=== PATIENT | female | born 1955 | race Caucasian/White ===

== ENCOUNTER 2019-12-12 13:41 | Emergency (ER) | payer BC, OTHER ==
[~2019-12-12] VITALS: Ht 154.9 cm; Wt 87.6 kg
--- NOTE | 2019-12-12 13:58 | ED General ---
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 no definite dx known no travel or exposure to travelers from high risk areas initially had some low-grade fevers and a little vomiting and diarrhea those symptoms have resolved she feels congested weak and short of breath and feels her breathing treatments don't help cough with occ cream/green sputum she has been seen 3 times got got steroid shot is on prednisone she uses metered-dose inhalers and nebulizer treatments at home she took antibi otics briefly but is no longer on antibiotics Allergies and Home Medications Allergies Coded Allergies: codeine (Unverified Adverse Reaction, Unknown, 12/12/19) meperidine (Unverified Adverse Reaction, Unknown, 12/12/19) Home Medications Ipratropium/Albuterol Sulfate 3 Ml Ampul.neb, 3 ML IH Q4H PRN for SHORTNESS OF BREATH Prescribed by: MANUEL UP on 12/12/19 1532 Patient Home Medication List Home Medication List Reviewed: Yes Review of Systems Review of Systems Constitutional: dizziness; No fever EENTM: nose congestion; No throat pain Respiratory: cough, short of breath Cardiovascular: No chest pain, No palpitations, No syncope Gastrointestinal: No abdominal pain, No diarrhea, No vomiting Genitourinary: no symptoms reported Past Zmxkdak-Xovlhy-Gubdue Hx Patient Social History Recent Foreign Travel: No Contact w/Someone Who Travel: No Physical Exam Vital Signs Vital Signs - First Documented 12/12/19 13:50 Temp 36.7 Pulse 110 Resp 20 B/P (MAP) 189/83 (118) Pulse Ox 95 O2 Delivery Room Air Capillary Refill : Height, Weight, BMI Height: '" Weight: lbs. oz. kg; BMI Method: General Appearance: Other (mildly ill appearing no distress) Eyes: Bilateral Eye PERRL, Bilateral Eye EOMI HEENT: TMs Normal, Pharynx Normal Neck: Supple Respiratory: Normal Breath Sounds Cardiovascular: Regular Rate, Rhythm, No Murmur Gastrointestinal: Normal Bowel Sounds, Non Tender, Soft Extremity: No No Pedal Edema, No Calf Tenderness Focused Exam Lactate Level 12/12/19 14:10: Lactic Acid Level 2.30*H Lactic Acid Level Laboratory Tests Test 12/12/19 14:10 Lactic Acid Level 2.30 MMOL/L (0.50-2.00) *H Progress/Results/Core Measures Suspected Sepsis SIRS Temperature: Pulse: Respiratory Rate: Laboratory Tests 12/12/19 14:10: White Blood Count 11.6H Blood Pressure / Mean: 12/12/19 14:10: Lactic Acid Level 2.30*H Laboratory Tests 12/12/19 14:10: Creatinine 0.71, Platelet Count 406H, Total Bilirubin 0.2 Results/Orders Lab Results Laboratory Tests Test 12/12/19 14:10 Range/Units White Blood Count 11.6 H 4.3-11.0 10^3/uL Red Blood Count 4.07 L 4.35-5.85 10^6/uL Hemoglobin 12.2 11.5-16.0 G/DL Hematocrit 38 35-52 % Mean Corpuscular Volume 93 80-99 FL Mean Corpuscular Hemoglobin 30 25-34 PG Mean Corpuscular Hemoglobin Concent 32 32-36 G/DL Red Cell Distribution Width 12.8 10.0-14.5 % Platelet Count 406 H 130-400 10^3/uL Mean Platelet Volume 8.2 7.4-10.4 FL Neutrophils (%) (Auto) 92 H 42-75 % Lymphocytes (%) (Auto) 6 L 12-44 % Monocytes (%) (Auto) 2 0-12 % Eosinophils (%) (Auto) 0 0-10 % Basophils (%) (Auto) 0 0-10 % Neutrophils # (Auto) 10.6 H 1.8-7.8 X 10^3 Lymphocytes # (Auto) 0.7 L 1.0-4.0 X 10^3 Monocytes # (Auto) 0.2 0.0-1.0 X 10^3 Eosinophils # (Auto) 0.0 0.0-0.3 10^3/uL Basophils # (Auto) 0.0 0.0-0.1 10^3/uL Neutrophils % (Manual) 91 % Lymphocytes % (Manual) 4 % Monocytes % (Manual) 2 % Eosinophils % (Manual) 0 % Basophils % (Manual) 0 % Band Neutrophils 3 % Blood Morphology Comment NORMAL D-Dimer 0.23 0.00-0.49 UG/ML Sodium Level 141 135-145 MMOL/L Potassium Level 3.7 3.6-5.0 MMOL/L Chloride Level 100 98-107 MMOL/L Carbon Dioxide Level 26 21-32 MMOL/L Anion Gap 15 H 5-14 MMOL/L Blood Urea Nitrogen 17 7-18 MG/DL Creatinine 0.71 0.60-1.30 MG/DL Estimat Glomerular Filtration Rate > 60 BUN/Creatinine Ratio 24 Glucose Level 195 H 70-105 MG/DL Lactic Acid Level 2.30 *H 0.50-2.00 MMOL/L Calcium Level 9.1 8.5-10.1 MG/DL Corrected Calcium 9.0 8.5-10.1 MG/DL Total Bilirubin 0.2 0.1-1.0 MG/DL Aspartate Amino Transf (AST/SGOT) 17 5-34 U/L Alanine Aminotransferase (ALT/SGPT) 19 0-55 U/L Alkaline Phosphatase 71 40-136 U/L Troponin I < 0.30 <0.30 NG/ML Total Protein 6.8 6.4-8.2 GM/DL Albumin 4.1 3.2-4.5 GM/DL Micro Results Microbiology 12/12/19 Influenza Types A,B Antigen (NIKOLAY) - Final, Complete My Orders Orders - MANUEL UP MD Iv Heplock-Insert (Order) (12/12/19 14:05) Cbc With Automated Diff (12/12/19 14:05) Comprehensive Metabolic Panel (12/12/19 14:05) Lactic Acid Analyzer (12/12/19 14:05) Troponin I Fs (12/12/19 14:05) Influenza A And B Antigens (12/12/19 14:05) Chest Pa/Lat (2 View) (12/12/19 14:05) Orthostatic Vital Signs (Adult (12/12/19 14:05) Manual Differential (12/12/19 14:10) Clonidine Tablet (Catapres Tablet) (12/12/19 14:45) Fibrin Degradation Products (12/12/19 14:40) Albuterol/Ipra Inhalation Soln (Duoneb I (12/12/19 14:45) Svn Small Volume Nebulizer (12/12/19 14:40) Ns Iv 1000 Ml (Sodium Chloride 0.9%) (12/12/19 14:45) Ekg Tracing (12/12/19 15:24) Medications Given in ED Current Medications Medications Dose Ordered Sig/Heather Route Start Time Stop Time Status Last Admin Dose Admin Albuterol/ Ipratropium 3 ml ONCE ONCE INH 12/12/19 14:45 12/12/19 14:46 DC 12/12/19 14:50 3 ML Clonidine HCl 0.2 mg ONCE ONCE PO 12/12/19 14:45 12/12/19 14:46 DC 12/12/19 14:49 0.2 MG Vital Signs/I&O 12/12/19 12/12/19 13:50 14:00 Temp 36.7 Pulse 110 91 94 95 Resp 20 B/P (MAP) 189/83 (118) 208/81 (123) 190/72 (111) 190/83 (118) Pulse Ox 95 O2 Delivery Room Air Capillary Refill : Progress Note : Progress Note EKG shows sinus rhythm at 91 with no acute changes CXR - no definite infiltrate no infiltrate no CHF Hb 12.2 WBC 11,600 lactic 2.3 CMP - neg trop - neg influenza - A&B neg d-dimer - neg orthostats were negative but patient has consistently high blood pressures one reading was over 200 systolic she takes lisinopril 20 qHS will augment with clonidine 0.2 po here now beck pt felt that worked well will prescribe solution for use with nebulizer BP better 175/ Departure Impression Primary Impression: Bronchitis Disposition: 01 HOME, SELF-CARE Condition: Improved Departure-Patient Inst. Decision time for Depature: 15:31 Referrals: [facility] (PCP) Primary Care Physician MARIA DE JESUS MAGUIRE APRN (Family) Primary Care Physician Patient Instructions: Acute Bronchitis, Adult (DC) Add. Discharge Instructions: Recommend finishing out antibiotic prescription and continuing prednisone as prescribed Scripts Ipratropium/Albuterol Sulfate (Iprat-Albut 0.5-3(2.5) mg/3 ml) 3 Ml Ampul.neb 3 ML IH Q4H PRN for SHORTNESS OF BREATH, #90 EACH Prov: MANUEL UP MD 12/12/19 MANUEL UP MD Dec 12, 2019 13:58
[2019-12-12 14:00] VITALS: BP_SYST 190; BP_SYST 208; BP_DIAS 72; BP_DIAS 81; BP_DIAS 83
[2019-12-12] MEDS ORDERED: ESTR2TAB (14:04)
[2019-12-12] MEDS ORDERED: SIMV20TA26 (14:04)
[2019-12-12] MEDS ORDERED: FLUT1DIS26 (14:04)
[2019-12-12] MEDS ORDERED: ALBU2.5V4 (14:04)
[2019-12-12] MEDS ORDERED: MONT10TA26 (14:04)
[2019-12-12] MEDS ORDERED: PRD20T (14:04)
[2019-12-12] MEDS ORDERED: SERT100T8 (14:04)
[2019-12-12] MEDS ORDERED: LISI-552 (14:04)
[2019-12-12] MEDS ORDERED: PRD10T (14:04)
[2019-12-12 14:30] LABS: WHITE BLOOD COUNT 11.6 10^3/uL (4.3-11.0)
[2019-12-12 14:31] LABS: BASOPHILS % (AUTO) 0 % (0-10); EOSINOPHILS % (AUTO) 0 % (0-10); HEMATOCRIT 38 % (35-52); HEMOGLOBIN 12.2 G/DL (11.5-16.0); LYMPHOCYTES # (AUTO) 0.7 X 10^3 (1.0-4.0); LYMPHOCYTES % (AUTO) 6 % (12-44); MEAN CORPUSCULAR HEMOGLOBIN 30 PG (25-34); MEAN CORPUSCULAR HGB CONC 32 G/DL (32-36); MEAN CORPUSCULAR VOLUME 93 FL (80-99); MEAN PLATELET VOLUME 8.2 FL (7.4-10.4); MONOCYTES # (AUTO) 0.2 X 10^3 (0.0-1.0); MONOCYTES % (AUTO) 2 % (0-12); NEUTROPHILS # (AUTO) 10.6 X 10^3 (1.8-7.8); NEUTROPHILS % (AUTO) 92 % (42-75); PLATELET COUNT 406 10^3/uL (130-400); RED CELL DISTRIBUTION WIDTH 12.8 % (10.0-14.5)
[2019-12-12 14:36] LABS: BAND NEUTROPHILS 3 %; BASOPHILS % (MANUAL) 0 %; EOSINOPHILS % (MANUAL) 0 %; LYMPHOCYTES % (MANUAL) 4 %; MONOCYTES % (MANUAL) 2 %; NEUTROPHILS % (MANUAL) 91 %
[2019-12-12 14:37] LABS: RBC MORPH NORMAL
--- NOTE | 2019-12-12 14:39 | Diagnostic Imaging Report ---
INDICATION: Cough, shortness of breath. COMPARISON: None available. TECHNIQUE: Frontal and lateral radiograph of the chest dated December 12, 2019. FINDINGS: The cardiac silhouette and pulmonary vasculature are within normal limits. The lungs are clear. No pleural effusion. No pneumothorax. Surgical clips within the right upper quadrant of the abdomen. No acute osseous abnormality. IMPRESSION: No acute cardiopulmonary abnormality. Dictated by: Dictated on workstation # [id number]
[2019-12-12] MEDS ORDERED: NS IV 1000 ML 1,000 ML IV SCH (14:45)
[2019-12-12] MEDS ORDERED: cloNIDine 0.2 MG (CATAPRES) TAB PO ONE (14:45)
[2019-12-12] MEDS ORDERED: RT-ALBUTEROL/IPRATROPIUM 3 ML (DUONEB) VIAL INH ONE (14:45)
[2019-12-12 14:51] LABS: SODIUM 141 MMOL/L (135-145)
[2019-12-12 14:52] LABS: BILIRUBIN,TOTAL 0.2 MG/DL (0.1-1.0); BUN/CREATININE RATIO 24; CALCIUM 9.1 MG/DL (8.5-10.1); CARBON DIOXIDE 26 MMOL/L (21-32); CHLORIDE 100 MMOL/L (98-107); CREATININE SERUM 0.71 MG/DL (0.60-1.30); GFR ESTIMATED > 60; GLUCOSE 195 MG/DL (70-105); POTASSIUM 3.7 MMOL/L (3.6-5.0)
[2019-12-12 14:53] LABS: ALANINE AMINOTRANSFERASE 19 U/L (0-55); ALBUMIN 4.1 GM/DL (3.2-4.5); ALKALINE PHOSPHATASE 71 U/L (40-136); TOTAL PROTEIN 6.8 GM/DL (6.4-8.2)
[2019-12-12] MEDS ORDERED: IPRA3AMP31 IH (15:32)
[2019-12-12 15:54] VITALS: BP 161/71
--- NOTE | 2019-12-12 15:54 | NUR ---
Pt discharged to home after review of home instructions. Pt has been advised/encouraged to complete previos prescribed medications: antibiotics and steroid. Pt has had 2 steroid scripts in the course of her illness and she had stopped antibiotics as not getting better but tapered her steroid pills to half the pills and tapered the course quicker. Pt took 2 days of 40 mg then skipped to 30 mg and has had 3 days of that. Last course broke all pills in half. Pt is also reporting on HTN med and cholestrol med and swears Lisinopril is to be a night time med. Pt has not taken any Lisinopril since last night and BP responding to Clonidine. Pt educated to get a f/u appt and discuss the medication regimen.
--- OUTSIDE RECORDS SUMMARY | 2019-12-14 08:57 | XMS REPORT ---
Author Author Mirta MALDONADO Organization [employer] Address Unknown Phone Unavailable Care Team Providers Care Assistant Professor Of Marine Biology Name Role Phone STEFANI MALDONADO CP Unavailable Allergies No Known Allergies Problems Problem Type Condition Code Onset Dates Condition Statu s Assessment Encounter for immunization Z23 A ctive Problem Need for prophylactic vaccination and inoculation, Inf luenza V04.81 Active Medications No Known Medications Procedures Procedure Coding System Code Date SINGLE IMMUNIZATION ADMIN CPT-4 59033 Aug FLUARIX QUAD (3 & UP)-GSK-2014 CPT-4 58475 N 2014 Results No Known Results Immunizations Vaccine Administration Date FLUARIX QUAD (3 & UP)-GSK-2014Aug 04, 2015 Summary Purpose [employer] Submission
--- OUTSIDE RECORDS SUMMARY | 2019-12-14 08:57 | XMS REPORT ---
Author Author Mirta KRISHNA Organization [facility] Address [address] [place] [address] Care Team Providers Care Cardiac Technician Name Role Phone TOMI WENDY Unavailable PROBLEMS Type Condition ICD9-CM Code NZV36-CD Code Onset Dates Condition S tatus SNOMED Code Problem Prediabetes 790.29 Mar, 0 46632 8002 Problem Skin lesion 709.9 January, 0 05449 001 Problem HTN (hypertension) 401.9 Oct, 0 90708885 Problem Well woman exam with routine gynecological exam V72.31 January, 0 408063665336366 Problem Encounter for removal of sutures V58.32 January, 0 18578876 Problem Anxiety state 300.00 Mar, 0 198 167102 Problem Closed fracture of patella 822.0 Mar, 0 62544657 Problem Well woman exam with routine gynecological exam Z01.419 January, 0 538100156064999 Problem Need for prophylactic vaccination and inoculation, Influen za V04.81 Active 181632194 Problem Closed fracture of patella S82.009A Mar, 0 70022429 Problem Patellofemoral arthritis of right knee 716.96 2 3 Nov, 2017 0 825782839 Problem Unspecified asthma(493.90) J45.909 0 86968627 Problem Skin lesion L98.9 January, 0 59395 001 Problem Allergic rhinitis due to other allergen 477.8 0 67448932 Problem Encounter for removal of sutures Z48.02 January, 0 63622378 Problem Essential hypertension I10 Active 58763209 Problem Cough 786.2 Jul, 0 0856788 2 Problem HTN (hypertension) I10 Oct, 0 49933349 Problem Cough R05 Jul, 0 4162607 2 Problem Patellofemoral arthritis of right knee M17.11 2 3 Nov, 2017 0 141461767 Problem Allergic rhinitis due to other allergen J30.89 0 32600679 Problem Prediabetes R73.03 Mar, 0 41543 8002 Problem Anxiety state F41.1 Mar, 0 198 734751 ALLERGIES No Information ENCOUNTERS Encounter Location Date [facility] [address] [address] Nov, Anxiety state F41.1 and Acute sinusitis, recurrence not specified, unspecified location J01.90 [facility] [address] [address] Nov, [address] [address] Nov, Microcalcification of right breast on ma mmogram R92.[address] [address] Nov, Microcalcification of right breast on ma mmogram R92.[address] [address] Nov, Microcalcification of right breast on ma mmogram R92.[address] [address] Nov, Screening mammogram, encounter for Z12.[address] [address] Nov, Well woman exam with routine gynecologic al exam Z01.[address] [address] Nov, [facility] [address] [facility] [place] [address] Nov, Essential hypertension I10 [address] [address] Nov, [address] [address] Nov, [facility] [address] [facility] [id number] [address] [place] [address] Aug, [facility] [address] [place] [id number] [address] [place] [phone] Jul, [facility] [address] [facility] [id number] [address] [place] [address] Aug, [facility] [address] [facility] [id number] [address] [place] [address] Aug, Encounter for immunization Z 23 [facility] [address] [facility] [id number] [address] [place] [phone] Jul, [facility] [address] [facility] [id number] [address] [place] [address] Jul, IMMUNIZATIONS No Known Immunizations SOCIAL HISTORY Never Assessed REASON FOR VISIT PLAN OF CARE VITAL SIGNS MEDICATIONS No Known Medications RESULTS No Results PROCEDURES No Known procedures INSTRUCTIONS MEDICATIONS ADMINISTERED No Known Medications MEDICAL (GENERAL) HISTORY Type Description Date Medical History hypertension Medical History asthma Medical History hormone Medical History depression Surgical History cholecystectomy Surgical History right knee /patella repair Surgical History hysterectomy, abdominal Hospitalization History surgeries Hospitalization History child x3, 1 miscarriage
--- OUTSIDE RECORDS SUMMARY | 2019-12-14 08:57 | XMS REPORT ---
Author Author Mirta KRISHNA Organization [facility] Address [address] [place] [address] Care Team Providers Care Director Voice Name Role Phone TOMI WENDY Unavailable PROBLEMS Type Condition ICD9-CM Code RNN32-YL Code Onset Dates Condition S tatus SNOMED Code Problem Prediabetes 790.29 Mar, 0 87212 8002 Problem Skin lesion 709.9 January, 0 53406 001 Problem HTN (hypertension) 401.9 Oct, 0 50450904 Problem Well woman exam with routine gynecological exam V72.31 January, 0 541709764039108 Problem Encounter for removal of sutures V58.32 January, 0 24789399 Problem Anxiety state 300.00 Mar, 0 198 787984 Problem Closed fracture of patella 822.0 Mar, 0 63227856 Problem Well woman exam with routine gynecological exam Z01.419 January, 0 061207679350329 Problem Need for prophylactic vaccination and inoculation, Influen za V04.81 Active 095077585 Problem Closed fracture of patella S82.009A Mar, 0 02000958 Problem Patellofemoral arthritis of right knee 716.96 2 3 Nov, 2017 0 308857484 Problem Unspecified asthma(493.90) J45.909 0 37875570 Problem Skin lesion L98.9 January, 0 03639 001 Problem Allergic rhinitis due to other allergen 477.8 0 13029887 Problem Encounter for removal of sutures Z48.02 January, 0 94185119 Problem Essential hypertension I10 Active 77519230 Problem Cough 786.2 Jul, 0 3039808 2 Problem HTN (hypertension) I10 Oct, 0 43167819 Problem Cough R05 Jul, 0 2476183 2 Problem Patellofemoral arthritis of right knee M17.11 2 3 Nov, 2017 0 072377482 Problem Allergic rhinitis due to other allergen J30.89 0 82777779 Problem Prediabetes R73.03 Mar, 0 58183 8002 Problem Anxiety state F41.1 Mar, 0 198 186676 ALLERGIES No Information ENCOUNTERS Encounter Location Date [facility] [address] [address] Dec, [address] [address] Nov, Anxiety state F41.1 and Acute sinusitis, recurrence not specified, unspecified location J01.90 [facility] [address] [address] Nov, [address] [address] Nov, Microcalcification of right breast on ma mmogram R92.[address] [address] Nov, Microcalcification of right breast on ma mmogram R92.[address] [address] Nov, Microcalcification of right breast on ma mmogram R92.[address] [address] Nov, Screening mammogram, encounter for Z12.3 [address] [facility] [address] [address] Nov, Well woman exam with routine gynecologic al exam Z01.[address] [address] Nov, [facility] [address] [facility] [place] [address] Nov, Essential hypertension I10 [address] [address] Nov, [address] [address] Nov, [facility] [address] [facility] [id number] [address] [place] [address] Aug, [facility] [address] [facility] [id number] [address] [place] [phone] Jul, [facility] [address] [facility] [id number] [address] [place] [phone] Aug, [facility] [address] [facility] [id number] [address] [place] [phone] Aug, Encounter for immunization Z 23 [facility] [address] [facility] [id number] [address] [place] [address] Jul, [facility] [address] [facility] [id number] [address] [place] [phone] Jul, IMMUNIZATIONS No Known Immunizations SOCIAL HISTORY Never Assessed REASON FOR VISIT Rt diagnostic Return - Alexia LOPEZ R M PLAN OF CARE VITAL SIGNS MEDICATIONS Unknown Medications RESULTS Name Result Date Reference Range MAMMOGRAM : DIAGNOSTIC, RIGHT UNILATERAL (IN HOUSE) 2018-12-06 PROCEDURES Procedure Date Ordered Result Body Site DX MAMMO INCL CAD UNI December 06, 2018 INSTRUCTIONS MEDICATIONS ADMINISTERED No Known Medications MEDICAL (GENERAL) HISTORY Type Description Date Medical History hypertension Medical History asthma Medical History hormone Medical History depression Surgical History cholecystectomy Surgical History right knee /patella repair Surgical History hysterectomy, abdominal Hospitalization History surgeries Hospitalization History child x3, 1 miscarriage
== END 2019-12-12 15:54 | disposition home or self-care (01) ==
LOC: ER FS 13:44
DX: J40 Bronchitis, not specified as acute or chronic (principal); Z88.5 Allergy status to narcotic agent
CPT/HCPCS: 36415; 71046; 80053; 83605; 84484; 85007; 85027; 85379; 87804; 93005

== ENCOUNTER 2020-02-29 08:40 | Emergency (ER) | payer BC ==
[~2020-02-29] VITALS: Ht 154.9 cm; Wt 85.9 kg
[~2020-02-29 08:40] MED LIST: ALBU2.5V4; ESTR2TAB; FLUT1DIS26; IPRA3AMP31 IH; LISI-552; MONT10TA26; PRD10T; PRD20T; SERT100T8; SIMV20TA26
--- OUTSIDE RECORDS SUMMARY | 2020-02-29 08:46 | XMS REPORT | Continuity of Care Document ---
Author Organization Unknown Address Unknown Phone Unavailable Allergies Active Description Code Type Severity Reaction Onset Reported/Identified Relationship to Patient Clinical Status Yes codeine [id number] Drug Allergy Unknown N/A 12/12/2019 Yes meperidine [id number] Drug Allerg y Unknown N/A 12/12/2019 Medications There is no data. Problems Date Dx Coded Attending Type Code Diagnosis Diagnosed By 07/17/2014 V04.81 FLU SHOT 12/12/2019 MANUEL UP MD Ot J40 BRONCHITIS, NOT SPECIFIED ACUTE OR CH 12/12/2019 MANUEL UP MD Ot R06. 02 SHORTNESS OF BREATH 12/12/2019 MANUEL UP MD Ot Z88. 5 ALLERGY STATUS TO NARCOTIC AGENT STATUS 12/16/2019 MANUEL UP MD Ot J40 BRONCHITIS, NOT SPECIFIED ACUTE OR CH 12/16/2019 MANUEL UP MD Ot R06. 02 SHORTNESS OF BREATH 12/16/2019 MANUEL UP MD Ot Z88. 5 ALLERGY STATUS TO NARCOTIC AGENT STATUS 12/20/2019 MANUEL UP MD Ot J40 BRONCHITIS, NOT SPECIFIED ACUTE OR CH 12/20/2019 MANUEL UP MD Ot R06. 02 SHORTNESS OF BREATH 12/20/2019 MANUEL UP MD Ot Z88. 5 ALLERGY STATUS TO NARCOTIC AGENT STATUS Procedures There is no data. Results Test Result Range SUREPATH PAP RFX HPV mRNA E6/E7 - 09:44 CLINICAL INFORMATION: NRG LMP: NRG PREV. PAP: NRG PREV. BX: NRG SOURCE: Cervix NRG STATEMENT OF ADEQUACY: NRG INTERPRETATION/RESULT: NRG VIDEO INTERN: VICTORIANO COMMENT NRG A1C - 06/25/19 10:11 HEMOGLOBIN A1c 5.7 % of total Hgb <5.7 Influenza virus A and B antigen detectio n - 12/12/19 14:00 FLU RESULT NEGATIVE FOR INFLUENZA A AND B ANTIGENS BY IA NRG Complete blood count (CBC) with automate d white blood cell (WBC) differential - 12/12/19 14:10 Blood leukocytes automated count (number/volume) 11.6 10*3/uL 4.3-11.0 Blood erythrocytes automated count (number/volume) 4.07 10*6/uL 4.35-5.85 Venous blood hemoglobin measurement (mass/volume) 12.2 g/dL 11.5-16.0 Blood hematocrit (volume fraction) 38 % 35-52 Automated erythrocyte mean corpuscular volume 93 [ foz_us] 80-99 Automated erythrocyte mean corpuscular h emoglobin (mass per erythrocyte) 30 pg 25-34 Automated erythrocyte mean corpuscular h emoglobin concentration measurement (mass/volume) 32 g/dL 32-36 Automated erythrocyte distribution width ratio 12. 8 % 10.0- 14.5 Automated blood platelet count (count/volume) 406 10*3/uL 130-400 Automated blood platelet mean volume measurement 8.2 [foz_us] 7.4-10.4 Automated blood neutrophils/100 leukocytes 92 % 42-75 Automated blood lymphocytes/100 leukocytes 6 % 12-44 Blood monocytes/100 leukocytes 2 % 0-12 Automated blood eosinophils/100 leukocytes 0 % 0-10 Automated blood basophils/100 leukocytes 0 % 0-10 Blood neutrophils automated count (number/volume) 10.6 10*3 1.8-7.8 Blood lymphocytes automated count (number/volume) 0.7 10*3 1.0-4.0 Blood monocytes automated count (number/volume) 0. 2 10*3 0.0-1.0 Automated eosinophil count 0.0 10*3/uL 0 .0-0.3 Automated blood basophil count (count/volume) 0.0 10*3/uL 0.0-0.1 Manual absolute plasma cell count - 11/29 12/18 14:10 Blood monocytes/100 leukocytes 2 % NRG Manual blood segmented neutrophils/100 leukocytes 91 % NRG Blood band neutrophils/100 leukocytes 3 % NRG Manual blood lymphocytes/100 leukocytes 4 % NRG Manual eosinophils/100 leukocytes in nose 0 % NRG Manual blood basophils/100 leukocytes 0 % NRG Blood erythrocyte morphology finding identification NORMAL NRG Blood lactic acid measurement (moles/vol ume) - 12/12/19 14:10 Blood lactic acid measurement (moles/volume) 2.30 mmol/L 0.50-2.00 Comprehensive metabolic panel - 12/12/19 14:10 Serum or plasma sodium measurement (moles/volume) 141 mmol/L 135-145 Serum or plasma potassium measurement (moles/volume) 3.7 mmol/L 3.6-5.0 Serum or plasma chloride measurement (moles/volume) 100 mmol/L 98-107 Carbon dioxide 26 mmol/L 21-32 Serum or plasma anion gap determination (moles/volume) 15 mmol/L 5-14 Serum or plasma urea nitrogen measurement (mass/volume ) 17 mg/dL 7-18 Serum or plasma creatinine measurement (mass/volume) 0.71 mg/dL 0.60-1.30 Serum or plasma urea nitrogen/creatinine mass ratio 24 NRG Serum or plasma creatinine measurement w ith calculation of estimated glomerular filtration rate > NRG Serum or plasma glucose measurement (mass/volume) 195 mg/dL 70-105 Serum or plasma calcium measurement (mass/volume) 9.1 mg/dL 8.5-10.1 Serum or plasma total bilirubin measurement (mass/volu me) 0.2 mg/dL 0.1-1.0 Serum or plasma alkaline phosphatase chandler surement (enzymatic activity/volume) 71 U/L 40-136 Serum or plasma aspartate aminotransfera se measurement (enzymatic activity/volume) 17 U/L 5-34 Serum or plasma alanine aminotransferase measurement (enzymatic activity/volume) 19 U/L 0-55 Serum or plasma protein measurement (mass/volume) 6.8 g/dL 6.4-8.2 Serum or plasma albumin measurement (mass/volume) 4.1 g/dL 3.2-4.5 CALCIUM CORRECTED 9.0 mg/dL 8.5-10.1 TROPONIN I FS - 12/12/19 14:10 TROPONIN I FS < 0.30 <0.30 Fibrin D-dimer FEU measurement in platel et poor plasma (mass/volume) - 12/12/19 14:10 Fibrin D-dimer FEU measurement in platelet poor plasma (mass/volume) 0.23 ug/mL 0.00-0.49 CBC - 12/29/19 11:29 WHITE BLOOD CELL COUNT 7.1 Thousand/uL 3 .8-10.8 RED BLOOD CELL COUNT 4.20 Million/uL 3.8 0-5.10 HEMOGLOBIN 12.5 g/dL 11.7-15.5 HEMATOCRIT 37.2 % 35.0-45.0 MCV 88.6 fL 80.0-100.0 MCH 29.8 pg 27.0-33.0 MCHC 33.6 g/dL 32.0-36.0 RDW 12.3 % 11.0-15.0 PLATELET COUNT 265 Thousand/uL 140-400 MPV 8.6 fL 7.5-12.5 ABSOLUTE NEUTROPHILS 5155 cells/uL 1500- 7800 ABSOLUTE LYMPHOCYTES 1299 cells/uL 850-3 900 ABSOLUTE MONOCYTES 497 cells/uL 200-950 ABSOLUTE EOSINOPHILS 107 cells/uL 15-500 ABSOLUTE BASOPHILS 43 cells/uL 0-200 NEUTROPHILS 72.6 % NRG LYMPHOCYTES 18.3 % NRG MONOCYTES 7.0 % NRG EOSINOPHILS 1.5 % NRG BASOPHILS 0.6 % NRG Encounters ACCT No. Visit Date/Time Discharge Status Pt. Type Provider Facility Loc./Unit Complaint [id number] 08/17/2014 10:50:00 08/17/2014 23:59: 59 CLS Outpatient [id number] 11/30/2019 18:00:00 11/30/2019 23:59:5 9 CLS Outpatient MARIA DE JESUS MAGUIRE [facility] [id number] 12/29/2019 09:40:00 Document Registration [id number] 06/25/2019 08:20:00 Document Registration [id number] 11/21/2018 16:00:00 Document Registration [id number] 12/12/2019 13:44:00 020 23:59:59 CLS Emergency ANNEL TEMPLE, MANUEL [facility] ER FS SOB
--- OUTSIDE RECORDS SUMMARY | 2020-02-29 08:46 | XMS REPORT ---
Author Author Mirta Kaur Doctor Organization [facility] Address Unknown Phone Unavailable Care Team Providers Care Assembly Instructions Writer Name Role Phone Migration, Doctor Unavailable Unavailable PROBLEMS Type Condition ICD9-CM Code MDA36-NU Code Onset Dates Condition S tatus SNOMED Code Problem Patellofemoral arthritis of right knee M17.11 2 3 Nov, 2017 Active 909618275 Problem Allergic rhinitis due to other allergen J30.89 Active 95562685 Problem Prediabetes R73.03 Mar, Active 94620 8002 Problem Moderate persistent asthma with exacerbation J45.4 1 Active 253502727 Problem HTN (hypertension) I10 Active 3 3593201 Problem Anxiety state F41.1 Mar, Active 198 063662 Problem Essential hypertension I10 Active 48946048 Problem Mixed hyperlipidemia E78.2 Active 722456287 Problem BMI 34.0-34.9,adult Z68.34 Active [id number] ALLERGIES No Information ENCOUNTERS Encounter Location Date Diagnosis [address] [id number] [address] Dec, [address] [id number] [place] [address] Dec, [address] [id number], [place] [address] Dec, [address] [id number], [place] [address] Dec, [facility] [address] [id number], [place] [address] Nov, Shortness of breath R06.02 ; Upper abdominal pain R10.10 and Rib pain on right side R07.[address] [id number] [place] [address] Nov, Right upper quadrant abdomin al pain R10.11 ; Nausea R11.0 ; Allergic rhinitis due to other allergen J30.89 ; Mixed hyperlipidemia E78.2 ; HTN (hypertension) I10 and Prediabetes R73.[address] [id number] [place] [address] 13 Nov, 2019 Shortness of breath R06.[address] [id number] [place] [address] 09 Nov, 2019 Moderate persistent asthma w ith exacerbation J45.41 and BMI 34.0-34.9,adult Z68.34 [facility] [address] [id number] [place] [address] Nov, Exacerbation of asthma, unsp ecified asthma severity, unspecified whether persistent J45.901 [facility] [address] [id number] [place] [address] Nov, Acute non-recurrent maxillar y sinusitis J01.00 and Mild intermittent asthma with acute exacerbation J45.21 [facility] [address] [id number] [place] [address] Aug, Moderate persistent asthma w ith exacerbation J45.41 and Acute non-recurrent maxillary sinusitis J01.[address] [id number], [place] [address] Jul, Screening mammogram, encount er for Z12.[address] [id number], [place] [address] Jul, Anxiety state F41.1 ; Mixed hyperlipidemia E78.2 and HTN (hypertension) I10 [address] [id number], [place] [address] Jul, [address] [id number], [place] [address] Jun, Microcalcification of right breast on mammogram R92.[address] [id number], [place] [address] Jun, Microcalcification of right breast on mammogram R92.0 [facility] [place] [address] [id number] [place] [address] Jun, HTN (hypertension) I10 ; All ergic rhinitis due to other allergen J30.89 ; Prediabetes R73.03 ; Anxiety state F41.1 ; Unspecified asthma(493.90) J45.909 ; Mixed hyperlipidemia E78.2 and Acute recurrent pansinusitis J01.41 [facility] F[facility] [address] [id number] [place] [address] Jun, [facility] F[facility] [address] [id number] [place] [address] Dec, [facility] [address] [id number] [place] [address] Nov, Anxiety state F41.1 and Acut e sinusitis, recurrence not specified, unspecified location J01.90 [facility] [address] [id number] [place] [address] Nov, [address] [id number] [place] [address] Nov, Microcalcification of right breast on mammogram R92.0 [facility] F[facility] [address] [id number] [place] [address] Nov, Microcalcification of right breast on mammogram R92.0 [facility] [address] [id number] [place] [address] Nov, Microcalcification of right breast on mammogram R92.0 [facility] F[facility] [address] [id number] [place] [address] Nov, Screening mammogram, encount er for Z12.31 [facility] [address] [id number] [place] [address] Nov, Well woman exam with routine gynecological exam Z01.419 [facility] [place] [address] [id number] [place] [address] 18 Nov, 2018 [facility] [place] [facility] [address] [id number] [place] [address] Nov, Essential hypertension I10 [facility] [place] [address] [id number] [place] [address] Nov, [facility] [place] [address] [id number] [place] [address] Nov, [facility] [address] [facility] [id number] [address] [place] [address] Aug, [facility] [address] [facility] [id number] [address] [place] [address] Jul, [facility] [address] [facility] [id number] [address] [place] [address] Aug, [facility] [address] [facility] [id number] [address] [place] [address] Aug, Encounter for immunization Z 23 [facility] [address] [facility] [id number] [address] [place] [address] Jul, [facility] [address] [facility] [id number] [address] [place] [address] Jul, IMMUNIZATIONS No Known Immunizations SOCIAL HISTORY Never Assessed REASON FOR VISIT PLAN OF CARE VITAL SIGNS MEDICATIONS Unknown Medications RESULTS No Results PROCEDURES No Known procedures INSTRUCTIONS MEDICATIONS ADMINISTERED No Known Medications MEDICAL (GENERAL) HISTORY Type Description Date Medical History hypertension Medical History asthma Medical History hormone Medical History depression Surgical History cholecystectomy Surgical History right knee /patella repair Surgical History hysterectomy, abdominal Hospitalization History surgeries Hospitalization History child x3, 1 miscarriage
[2020-02-29] MEDS ORDERED: KETOROLAC 30 MG/ML VIAL IVP STA (09:02)
[2020-02-29] MEDS ORDERED: ONDANSETRON 4 MG/2 ML (SDV) Z0FRAN IVP STA (09:02)
[2020-02-29] MEDS ORDERED: NS IV 1000 ML 1,000 ML IV STA (09:02)
--- NOTE | 2020-02-29 09:08 | ED GI ---
General Chief Complaint: Abdominal/GI Problems Stated Complaint: RT SIDE PAIN;VOMITING Nursing Triage Note: Patient reports right sided abdominal pain, nausea, and vomiting since 0630 this morning. Bowel movement yesterday. Patient reports having a previous episode similar to this. Sepsis Screen: No Definite Risk Source of Information: Patient History of Present Illness Date Seen by Provider: February 29, 2020 Time Seen by Provider: 08:43 Initial Comments 64-year-old female presenting with complaints of right sided flank pain radiating to her groin. She states that she's had nausea and vomiting as well. This started at 6:30 this morning and has persisted. She had a normal bowel movement yesterday. She denies any fever or chills. She denies any diarrhea. She has no burning with urination. She denies any history of kidney stones but has had her gallbladder removed as well as hysterectomy and tubal. She lives alone and has no ill contacts that she is aware of. Allergies and Home Medications Allergies Coded Allergies: codeine (Unverified Adverse Reaction, Unknown, 12/12/19) meperidine (Unverified Adverse Reaction, Unknown, 12/12/19) Home Medications Hydrocodone/Acetaminophen 1 Each Tablet, 1 EACH PO Q6H PRN for PAIN-SEVERE (8- 10) Prescribed by: LIANNA BRADLEY on 02/29/20 1035 Ipratropium/Albuterol Sulfate 3 Ml Ampul.neb, 3 ML IH Q4H PRN for SHORTNESS OF BREATH Prescribed by: MANUEL UP on 12/12/19 1532 Ondansetron 4 Mg Tab.rapdis, 4 MG PO Q6H PRN for NAUSEA/VOMITING Prescribed by: LIANNA RADFORDRT on 02/29/20 1034 Tamsulosin HCl 0.4 Mg Cap, 0.4 MG PO DAILY Prescribed by: LIANNA RADFORDRT on 02/29/20 1034 Patient Home Medication List Home Medication List Reviewed: Yes Review of Systems Review of Systems Constitutional: No chills, No fever EENTM: No Symptoms Reported Respiratory: No Symptoms Reported Cardiovascular: No Symptoms Reported Gastrointestinal: See HPI, Abdominal Pain (right flank and right upper quadrant); Denies Constipated, Denies Diarrhea; Nausea, Vomiting Genitourinary: Denies Burning, Denies Frequency; Flank Pain (right); Denies Hematuria Musculoskeletal: no symptoms reported Skin: no symptoms reported Psychiatric/Neurological: No Symptoms Reported Endocrine: No Symptoms Reported Past Ffkboqb-Oknqsk-Vadwia Hx Past Med/Social Hx: Reviewed Nursing Past Med/Soc Hx Patient Social History Type Used: Cigarettes Former Smoker, Quit: Oct 01, 1985 Recent Foreign Travel: No Contact w/Someone Who Travel: No Recent Infectious Disease Expo: No Recent Hopitalizations: No Immunizations Up To Date Date of Pneumonia Vaccine: February 13, 2013 Date of Influenza Vaccine: Jul 01, 2019 Seasonal Allergies Seasonal Allergies: Yes Past Medical History Surgeries: Yes (ORIF patella 02/11/13, D&C, [place] teeth extraction) Gallbladder, Hysterectomy, Orthopedic Respiratory: Yes Asthma Cardiac: Yes Hypertension Neurological: No Genitourinary: No Gastrointestinal: No Musculoskeletal: Yes (Patella fx, Right Patellofemerol arthritis) Arthritis, Fractures Endocrine: Yes (Prediabetes) HEENT: No Cancer: No Psychosocial: Yes Anxiety Blood Disorders: No Physical Exam Vital Signs Vital Signs - First Documented 02/29/20 08:56 Temp 36.4 Pulse 80 Resp 18 B/P (MAP) 165/77 (106) Pulse Ox 97 O2 Delivery Room Air Capillary Refill : Less Than 3 Seconds Height/Weight/BMI Height: '" Weight: lbs. oz. kg; 35.00 BMI Method: General Appearance: WD/WN, mild distress HEENT: pharynx normal Neck: non-tender, full range of motion, supple, normal inspection Respiratory: chest non-tender, lungs clear, normal breath sounds, no respiratory distress, no accessory muscle use Cardiovascular: normal peripheral pulses, regular rate, rhythm, no edema Gastrointestinal: soft, no pulsatile mass, abnormal bowel sounds (hypoactive); No guarding, No rebound; tenderness (right upper quadrant and right flank); No hernia, No mass Rectal: deferred Extremities: normal range of motion, non-tender, normal capillary refill Neurologic/Psychiatric: 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 as tested, no motor/sensory deficits, alert, oriented x 3 Skin: normal color, warm/dry Progress/Results/Core Measures Results/Orders Lab Results Laboratory Tests Test 02/29/20 09:00 02/29/20 09:43 Range/Units White Blood Count 8.1 4.3-11.0 10^3/uL Red Blood Count 4.51 4.35-5.85 10^6/uL Hemoglobin 13.5 11.5-16.0 G/DL Hematocrit 41 35-52 % Mean Corpuscular Volume 90 80-99 FL Mean Corpuscular Hemoglobin 30 25-34 PG Mean Corpuscular Hemoglobin Concent 33 32-36 G/DL Red Cell Distribution Width 13.1 10.0-14.5 % Platelet Count 315 130-400 10^3/uL Mean Platelet Volume 8.8 7.4-10.4 FL Neutrophils (%) (Auto) 64 42-75 % Lymphocytes (%) (Auto) 28 12-44 % Monocytes (%) (Auto) 5 0-12 % Eosinophils (%) (Auto) 2 0-10 % Basophils (%) (Auto) 1 0-10 % Neutrophils # (Auto) 5.2 1.8-7.8 X 10^3 Lymphocytes # (Auto) 2.3 1.0-4.0 X 10^3 Monocytes # (Auto) 0.4 0.0-1.0 X 10^3 Eosinophils # (Auto) 0.1 0.0-0.3 10^3/uL Basophils # (Auto) 0.1 0.0-0.1 10^3/uL Sodium Level 142 135-145 MMOL/L Potassium Level 3.9 3.6-5.0 MMOL/L Chloride Level 102 98-107 MMOL/L Carbon Dioxide Level 25 21-32 MMOL/L Anion Gap 15 H 5-14 MMOL/L Blood Urea Nitrogen 22 H 7-18 MG/DL Creatinine 0.72 0.60-1.30 MG/DL Estimat Glomerular Filtration Rate > 60 BUN/Creatinine Ratio 31 Glucose Level 160 H 70-105 MG/DL Calcium Level 9.3 8.5-10.1 MG/DL Corrected Calcium 8.5-10.1 MG/DL Total Bilirubin 0.2 0.1-1.0 MG/DL Aspartate Amino Transf (AST/SGOT) 13 5-34 U/L Alanine Aminotransferase (ALT/SGPT) 14 0-55 U/L Alkaline Phosphatase 70 40-136 U/L Total Protein 7.4 6.4-8.2 GM/DL Albumin 4.7 H 3.2-4.5 GM/DL Lipase 32 8-78 U/L Urine Color YELLOW Urine Clarity CLEAR Urine pH 5.0 5-9 Urine Specific Jet >1.030 1.016-1.022 Urine Protein TRACE H NEGATIVE Urine Glucose (UA) NEGATIVE NEGATIVE Urine Ketones NEGATIVE NEGATIVE Urine Nitrite NEGATIVE NEGATIVE Urine Bilirubin NEGATIVE NEGATIVE Urine Urobilinogen 0.2 < = 1.0 MG/DL Urine Leukocyte Esterase NEGATIVE NEGATIVE Urine RBC (Auto) 3+ H NEGATIVE Urine RBC 25-50 H /HPF Urine WBC NONE /HPF Urine Squamous Epithelial Cells 2-5 /HPF Urine Crystals NONE /LPF Urine Bacteria TRACE /HPF Urine Casts NONE /LPF Urine Mucus MODERATE H /LPF Urine Culture Indicated NO My Orders Orders - LIANNA BRADLEY MD Ua Culture If Indicated (02/29/20 08:43) Comprehensive Metabolic Panel (02/29/20 09:01) Lipase (02/29/20 09:01) Ed Iv/Invasive Line Start (02/29/20 09:01) Cbc With Automated Diff (02/29/20 09:01) Ct Abdomen/Pelvis Wo (02/29/20 09:01) Ns Iv 1000 Ml (Sodium Chloride 0.9%) (02/29/20 09:02) Ketorolac Injection (Toradol Injection) (02/29/20 09:02) Ondansetron Injection (Zofran Injectio (02/29/20 09:02) Tamsulosin Capsule (Flomax Capsule) (02/29/20 09:52) Strain Urine (02/29/20 09:56) Vital Signs/I&O 02/29/20 02/29/20 08:56 10:50 Temp 36.4 Pulse 80 85 Resp 18 18 B/P (MAP) 165/77 (106) 158/69 Pulse Ox 97 94 O2 Delivery Room Air Room Air Blood Pressure Mean: 106 Progress Progress Note #1: Progress Note Obtain basic labs and CT scan of the abdomen and pelvis without contrast to evaluate for possible kidney stone versus bowel obstruction versus colitis or intra-abdominal pathology causing her pain and symptoms. Try IV fluids for hydration, Zofran for nausea, Toradol for pain. She was unable to provide a urine specimen on arrival but hopefully after fluids she will be able to urinate. Progress Note #2: Time: 09:28 Progress Note CBC does not show any acute significant abnormality. Her chemistry shows mild elevation of her BUN to 22. Her creatinine is normal. She also has normal lipase and LFTs. Her glucose is mildly elevated to 160. On my review of her CT scan she does have a approximately 6 mm kidney stone in the distal right ureter at the UVJ with hydroureter and some hydronephrosis. Awaiting official report from the radiologist. Progress Note #3: Time: 09:[address] report shows 7 mm kidney stone at UVJ with hydroureter. Pt reports her pain is still controlled. Start Flomax and she is tolerating po. D/c with strainer and counseled on follow up and return precautions. Given information for Dr. Tavarez for follow up as well. Diagnostic Imaging Diagonstic Imaging: CT Plain Films/CT/US/NM/MRI: abdomen, pelvis Comments NAME: LAURA HUDSON [facility] REC#: [id number] PT STATUS: REG ER : 1955 PHYSICIAN: LIANNA BRADLEY MD ADMIT DATE: 02/29/20/ER FS Draft Date of Exam:02/29/20 CT ABDOMEN/PELVIS WO PROCEDURE: CT abdomen and pelvis without contrast. TECHNIQUE: Multiple contiguous axial images were obtained through the abdomen and pelvis without the use of intravenous contrast. Auto Exposure Controls were utilized during the CT exam to meet ALARA standards for radiation dose reduction. INDICATION: Right-sided abdominal/flank pain. Nausea and vomiting. Difficulty urinating. CORRELATION STUDY: None. FINDINGS: LOWER THORAX: Minimal broad-like densities of the right middle and lower lobe may reflect mild pneumonitis. LIVER: Borderline enlarged but otherwise unremarkable unenhanced imaging. Calcified granuloma are present. GALLBLADDER: Cholecystectomy. No bile ductal dilatation. SPLEEN: Calcified granulomas. PANCREAS: Unremarkable. ADRENAL GLANDS: 2.6 x 1.9 cm right adrenal gland mass. There is some increased density centrally. Left adrenal gland unremarkable. KIDNEYS: 7 mm stone at the right UVJ. This results in [id number]-lzfvsdtd right-sided obstructive uropathy and slight engorgement of the right kidney. There are at least 3 additional nonobstructing stones inferior pole right kidney. Nonobstructing stone inferior pole left kidney. ABDOMINAL AORTA: Mild wall calcification, nonaneurysmal. GASTROINTESTINAL TRACT: No obstruction or inflammation. Normal appendix. Few colonic diverticuli are present. URINARY BLADDER: Decompressed. REPRODUCTIVE: Post hysterectomy. OSSEOUS STRUCTURES: No acute abnormality. OTHER: None. IMPRESSION: 1. 7 mm stone at the right UVJ, near the level the bladder. This results in mild to moderate right-sided obstruction. 2. Additional obstructing bilateral renal stones right greater than left. 3. Right adrenal gland mass. While this may reflect a adenoma, there is some increased density which is nonspecific. Hemorrhage would be considered remote. Other mass lesions are also considered less likely. However would recommend follow-up contrast-enhanced imaging after the acute symptoms have been treated. Dictated on workstation # [id number] Dict: 02/29/2027 Trans: 02/29/20 0943 ERIKA [id number] Interpreted by: ASH SINGH DO Electronically signed by: Departure Impression Primary Impression: Renal colic on right side Additional Impressions: Nausea and vomiting Qualified Codes: R11.14 - Bilious vomiting Acute right flank pain Calculus of distal right ureter Disposition: 01 HOME, SELF-CARE Condition: Stable Departure-Patient Inst. Decision time for Depature: 10:29 Referrals: [facility] (PCP) Primary Care Physician MARIA DE JESUS MAGUIRE APRN (Family) Primary Care Physician BABITA TAVAREZ MD Patient Instructions: Renal Colic (DC), Kidney Stones (DC), How to Strain Your Urine, Kidney Stone Diet Add. Discharge Instructions: Stay well hydrated and drink plenty of water to help flush out the kidney stone and prevent more from forming. Strain your urine to see when the stone passes. If you have worsening pain, uncontrolled vomiting, or fever over 101 F then return or seek medical care as you may need additional treatment for your kidney stones. Call Dr. Tavarez or Urologist of your choice for follow up about your kidney stone. That way if it is not passing on its own then they can help the stone pass or break it up to make it easier to pass. All discharge instructions reviewed with patient and/or family. Voiced understanding. Scripts Ondansetron (Ondansetron Odt) 4 Mg Tab.rapdis 4 MG PO Q6H PRN for NAUSEA/VOMITING for 2 Days, #8 TAB 0 Refills Prov: LIANNA BRADLEY MD 02/29/20 Tamsulosin HCl (Flomax) 0.4 Mg Cap 0.4 MG PO DAILY for Renal Colic for 5 Days, #5 CAP 0 Refills Prov: LIANNA BRADLEY MD 02/29/20 Hydrocodone/Acetaminophen (Hydrocodone-Acetamin 5-325 mg) 1 Each Tablet 1 EACH PO Q6H PRN for PAIN-SEVERE (8-10) for 3 Days, #10 TAB 0 Refills Prov: LIANNA BRADLEY MD 02/29/20 LIANNA BRADLEY MD February 29, 2020 09:08
[2020-02-29 09:11] LABS: WHITE BLOOD COUNT 8.1 10^3/uL (4.3-11.0)
[2020-02-29 09:12] LABS: BASOPHILS # (AUTO) 0.1 10^3/uL (0.0-0.1); BASOPHILS % (AUTO) 1 % (0-10); EOSINOPHILS # (AUTO) 0.1 10^3/uL (0.0-0.3); EOSINOPHILS % (AUTO) 2 % (0-10); HEMATOCRIT 41 % (35-52); HEMOGLOBIN 13.5 G/DL (11.5-16.0); LYMPHOCYTES # (AUTO) 2.3 X 10^3 (1.0-4.0); LYMPHOCYTES % (AUTO) 28 % (12-44); MEAN CORPUSCULAR HEMOGLOBIN 30 PG (25-34); MEAN CORPUSCULAR HGB CONC 33 G/DL (32-36); MEAN CORPUSCULAR VOLUME 90 FL (80-99); MEAN PLATELET VOLUME 8.8 FL (7.4-10.4); MONOCYTES # (AUTO) 0.4 X 10^3 (0.0-1.0); MONOCYTES % (AUTO) 5 % (0-12); NEUTROPHILS # (AUTO) 5.2 X 10^3 (1.8-7.8); NEUTROPHILS % (AUTO) 64 % (42-75); PLATELET COUNT 315 10^3/uL (130-400); RED CELL DISTRIBUTION WIDTH 13.1 % (10.0-14.5)
[2020-02-29 09:28] LABS: ALANINE AMINOTRANSFERASE 14 U/L (0-55); ALBUMIN 4.7 GM/DL (3.2-4.5); ALKALINE PHOSPHATASE 70 U/L (40-136); BILIRUBIN,TOTAL 0.2 MG/DL (0.1-1.0); BUN/CREATININE RATIO 31; CALCIUM 9.3 MG/DL (8.5-10.1); CARBON DIOXIDE 25 MMOL/L (21-32); CHLORIDE 102 MMOL/L (98-107); CREATININE SERUM 0.72 MG/DL (0.60-1.30); GFR ESTIMATED > 60; GLUCOSE 160 MG/DL (70-105); LIPASE 32 U/L (8-78); POTASSIUM 3.9 MMOL/L (3.6-5.0); SODIUM 142 MMOL/L (135-145); TOTAL PROTEIN 7.4 GM/DL (6.4-8.2)
--- NOTE | 2020-02-29 09:44 | Diagnostic Imaging Report ---
PROCEDURE: CT abdomen and pelvis without contrast. TECHNIQUE: Multiple contiguous axial images were obtained through the abdomen and pelvis without the use of intravenous contrast. Auto Exposure Controls were utilized during the CT exam to meet ALARA standards for radiation dose reduction. INDICATION: Right-sided abdominal/flank pain. Nausea and vomiting. Difficulty urinating. CORRELATION STUDY: None. FINDINGS: LOWER THORAX: Minimal broad-like densities of the right middle and lower lobe may reflect mild pneumonitis. LIVER: Borderline enlarged but otherwise unremarkable unenhanced imaging. Calcified granuloma are present. GALLBLADDER: Cholecystectomy. No bile ductal dilatation. SPLEEN: Calcified granulomas. PANCREAS: Unremarkable. ADRENAL GLANDS: 2.6 x 1.9 cm right adrenal gland mass. There is some increased density centrally. Left adrenal gland unremarkable. KIDNEYS: 7 mm stone at the right UVJ. This results in dzmh-rz-scekvavx right-sided obstructive uropathy and slight engorgement of the right kidney. There are at least 3 additional nonobstructing stones inferior pole right kidney. Nonobstructing stone inferior pole left kidney. ABDOMINAL AORTA: Mild wall calcification, nonaneurysmal. GASTROINTESTINAL TRACT: No obstruction or inflammation. Normal appendix. Few colonic diverticuli are present. URINARY BLADDER: Decompressed. REPRODUCTIVE: Post hysterectomy. OSSEOUS STRUCTURES: No acute abnormality. OTHER: None. IMPRESSION: 1. 7 mm stone at the right UVJ, near the level the bladder. This results in mild to moderate right-sided obstruction. 2. Additional obstructing bilateral renal stones right greater than left. 3. Right adrenal gland mass. While this may reflect a adenoma, there is some increased density which is nonspecific. Hemorrhage would be considered remote. Other mass lesions are also considered less likely. However would recommend follow-up contrast-enhanced imaging after the acute symptoms have been treated. Dictated by: Dictated on workstation # [id number]
[2020-02-29] MEDS ORDERED: TAMSULOSIN 0.4 MG (FLOMAX) CAP PO STA (09:52)
[2020-02-29 10:16] LABS: BILIRUBIN,URINE NEGATIVE (NEGATIVE); CLARITY,URINE CLEAR; COLOR,URINE YELLOW; GLUCOSE, URINE (UA) NEGATIVE (NEGATIVE); KETONES,URINE NEGATIVE (NEGATIVE); LEUKOCYTE ESTERASE ,URINE NEGATIVE (NEGATIVE); NITRITE,URINE NEGATIVE (NEGATIVE); PROTEIN,URINE TRACE (NEGATIVE)
[2020-02-29 10:17] LABS: BACTERIA,URINE TRACE /HPF; RBC,URINE 25-50 /HPF
[2020-02-29] MEDS ORDERED: ONDA4TAB11 PO (10:34)
[2020-02-29] MEDS ORDERED: HYDR-83 PO (10:34)
[2020-02-29] MEDS ORDERED: TMSL.4C PO (10:34)
[2020-02-29 10:50] VITALS: BP 158/69
== END 2020-02-29 10:50 | disposition home or self-care (01) ==
LOC: EDUNIT# 08:40 → ER FS 08:41
DX: N13.2 Hydronephrosis with renal and ureteral calculous obstruction (principal); J45.909 Unspecified asthma, uncomplicated; Z88.5 Allergy status to narcotic agent; Z87.891 Personal history of nicotine dependence
CPT/HCPCS: 36415; 74176; 80053; 81000; 83690; 85025; 96361; 96374; 96375

== ENCOUNTER → 2020-03-02 | Outpatient (CLI) | payer BC ==
[~2020-03-02] MED LIST changes: +ASPI-586 PO; +HYDR-83 PO; +NITR-65 PO; +ONDA4TAB11 PO; +PHEN-640 PO; +TMSL.4C PO
--- NOTE | 2020-03-02 16:48 | Diagnostic Imaging Report ---
EXAMINATION: Supine abdomen at 02:16 p.m. INDICATION: Nephrolithiasis. FINDINGS: The CT abdomen/pelvis exam of 02/29/2020 noted partial obstruction of the right collecting system due to a 7 mm calculus at the ureterovesical junction. That calculus is again evident and does not appear to have changed significantly in position. The nonobstructive calculi within the left kidney seen previously are again visualized and seem stable. The minute nonobstructive calculi within the right kidney are difficult to appreciate. There is gas in both the large and small bowel in a nonspecific fashion. There is no sign of bowel obstruction. There is no mass or organomegaly identified. The osseous structures are intact. IMPRESSION: The obstructive calculus involving the right collecting system noted on the prior exam is again evident and does not appear to have changed position. It still lies at the ureterovesical junction. Dictated by: Dictated on workstation # [id number]
== END ==
LOC: LAB 13:44
PROVIDERS: ATTEND Urology
DX: N20.0 Calculus of kidney (principal)
CPT/HCPCS: 74018

== ENCOUNTER 2020-03-03 05:37 | Outpatient (RCR) | payer BC ==
[~2020-03-03] VITALS: Ht 154 cm; Wt 83.1 kg
[~2020-03-03 05:37] MED LIST changes: -ASPI-586 PO; +HYDR-3812 PO; -HYDR-83 PO; -NITR-65 PO; -PHEN-640 PO
[2020-03-04] MEDS ORDERED: ASPI-586 PO (08:29)
[2020-03-04] MEDS ORDERED: PHEN-640 PO (11:03)
[2020-03-04] MEDS ORDERED: NITR-65 PO (11:03)
== END 2020-06-01 | disposition home or self-care (01) ==
LOC: PREOP 05:37
PROVIDERS: ATTEND Urology
DX: Z01.818 Encounter for other preprocedural examination (principal)

== ENCOUNTER 2020-03-04 07:07 | Day surgery (SDC) | payer BC ==
[2020-03-04] VITALS (8 sets, daily range): BP systolic 140–166; BP diastolic 64–87
[~2020-03-04] VITALS: Ht 154 cm; Wt 83.1 kg
[~2020-03-04 07:07] MED LIST changes: -HYDR-3812 PO; +HYDR-83 PO
[2020-03-04] MEDS ORDERED: CATHETER FLUSH 10 ML SYR IV PRN (07:30)
[2020-03-04] MEDS ORDERED: cefTRIAXone FOR IV USE 1,000 MG in WATER (STERILE) FOR INJECTION 10 ML IV ONE (07:30)
[2020-03-04] MEDS: LACTATED RINGERS 1,000 ML IV PRN ×2 (07:58→10:19)
[2020-03-04] MEDS ORDERED: fentaNYL INJECTION 100 MCG/2 ML AMP ONE (08:25)
[2020-03-04] MEDS ORDERED: MIDAZOLAM 2 MG/2 ML (VERSED) VIAL ONE (08:25)
[2020-03-04] MEDS ORDERED: ASPI-586 PO (08:29)
[2020-03-04] MEDS ORDERED: SEVOFLURANE (ULTANE) 15 ML INHAL SOLN ONE ×3 (09:50→10:45)
[2020-03-04] MEDS ORDERED: ONDANSETRON 4 MG/2 ML (SDV) Z0FRAN ONE (09:50)
[2020-03-04] MEDS ORDERED: proPOfol 200 MG/20 ML (DIPRIVAN) VIAL IV ONE (09:50)
[2020-03-04] MEDS ORDERED: LIDOCAINE PF 2% 5 ML (XYLOCAINE) VIAL ONE (09:50)
--- NOTE | 2020-03-04 09:51 | Progress Note-Pre Operative ---
Pre-Operative Progress Note H&P Reviewed The H&P was reviewed, patient examined and no changes noted. Date Seen by Provider: Mar 04, 2020 Time Seen by Provider: 09:51 Date H&P Reviewed: Mar 04, 2020 Time H&P Reviewed: 09:51 Pre-Operative Diagnosis: RT DISTAL URETERAL STONE BABITA TAVAREZ MD Mar 04, 2020 09:51
[2020-03-04] MEDS ORDERED: ROCURONIUM 10 MG/ML 5 ML SYRINGE IV ONE (09:57)
--- NOTE | 2020-03-04 10:09 | Progress Note-Post Operative ---
Post-Operative Progess Note Surgeon (s)/Pickle Water Pump Operator (s) Surgeon BABITA TAVAREZ MD Pickle Water Pump Operator: NONE Pre-Operative Diagnosis RT DISTAL URETERAL STONE AND VAGINAL PROLAPSE Post-Operative Diagnosis SAME Procedure & Operative Findings Date of Procedure 03/04/20 Procedure Performed/Findings CYSTOSCOPY, RT URETEROSCOPY WITH STONE LITHOTRIPSY Anesthesia Type GENERAL Estimated Blood Loss Estimated blood loss (mL): NONE Specimens/Packing Specimens Removed NONE Packing: NONE BABITA TAVAREZ MD Mar 04, 2020 10:09
--- OUTSIDE RECORDS SUMMARY | 2020-03-04 10:38 | XMS REPORT | Continuity of Care Document ---
Author Organization Unknown Address Unknown Phone Unavailable Allergies Active Description Code Type Severity Reaction Onset Reported/Identified Relationship to Patient Clinical Status Yes codeine [id number] Drug Allergy Unknown N/A 12/12/2019 Yes meperidine [id number] Drug Allerg y Unknown N/A 12/12/2019 Medications There is no data. Problems Date Dx Coded Attending Type Code Diagnosis Diagnosed By 07/17/2014 V04.81 FLU SHOT 12/12/2019 MANUEL UP MD Ot J40 BRONCHITIS, NOT SPECIFIED ACUTE OR CH 12/12/2019 MANUEL UP MD Ot R06. 02 SHORTNESS OF BREATH 12/12/2019 MANUEL UP MD, Ot Z88. 5 ALLERGY STATUS TO NARCOTIC AGENT STATUS 12/16/2019 MANUEL UP MD, Ot J40 BRONCHITIS, NOT SPECIFIED ACUTE OR [...] 5 ALLERGY STATUS TO NARCOTIC AGENT STATUS 03/02/2020 LIANNA BRADLEY MD, Ot J45.9 09 UNSPECIFIED ASTHMA, UNCOMPLICATED 03/02/2020 LIANNA BRADLEY MD, Ot N13.2 HYDRONEPHROSIS WITH RENAL AND URETERAL C 03/02/2020 LIANNA BRADLEY MD, Ot N23 UNSPECIFIED RENAL COLIC 03/02/2020 LIANNA BRADLEY MD, Ot Z87.8 91 PERSONAL HISTORY OF NICOTINE DEPENDENCE 03/02/2020 LIANNA BRADLEY MD, Ot Z88.5 ALLERGY STATUS TO NARCOTIC AGENT STATUS Procedures There is no data. Results Test Result Range SUREPATH PAP RFX HPV mRNA E6/E7 - 09:44 CLINICAL INFORMATION: NRG LMP: NRG PREV. PAP: NRG PREV. BX: NRG SOURCE: Cervix NRG STATEMENT OF ADEQUACY: NRG INTERPRETATION/RESULT: NRG LEAD RIDER: VICTORIANO COMMENT VICTORIANO A1C - 06/25/19 10:11 HEMOGLOBIN A1c 5.7 % of total Hgb <5.7 Influenza virus A and B antigen detectio n - 12/12/19 14:00 FLU RESULT NEGATIVE FOR INFLUENZA A AND B ANTIGENS BY IA NR Complete blood count (CBC) with automate d [...] 9.0 mg/dL 8.5-10.1 TROPONIN I FS - 03/13/20 14:10 TROPONIN I FS < 0.30 <0.30 [...] 1.5 % NRG BASOPHILS 0.6 % NRG Complete blood count (CBC) with automate d white blood cell (WBC) differential - 02/29/20 09:00 Blood leukocytes automated count (number/volume) 8.1 10*3/uL 4.3-11.0 Blood erythrocytes automated count (number/volume) 4.51 10*6/uL 4.35-5.85 Venous blood hemoglobin measurement (mass/volume) 13.5 g/dL 11.5-16.0 Blood hematocrit (volume fraction) 41 % 35-52 Automated erythrocyte mean corpuscular volume 90 [ foz_us] 80-99 Automated erythrocyte mean corpuscular h emoglobin (mass per erythrocyte) 30 pg 25-34 Automated erythrocyte mean corpuscular h emoglobin concentration measurement (mass/volume) 33 g/dL 32-36 Automated erythrocyte distribution width ratio 13. 1 % 10.0- 14.5 Automated blood platelet count (count/volume) 315 10*3/uL 130-400 Automated blood platelet mean volume measurement 8.8 [foz_us] 7.4-10.4 Automated blood neutrophils/100 leukocytes 64 % 42-75 Automated blood lymphocytes/100 leukocytes 28 % 12-44 Blood monocytes/100 leukocytes 5 % 0-12 Automated blood eosinophils/100 leukocytes 2 % 0-10 Automated blood basophils/100 leukocytes 1 % 0-10 Blood neutrophils automated count (number/volume) 5.2 10*3 1.8-7.8 Blood lymphocytes automated count (number/volume) 2.3 10*3 1.0-4.0 Blood monocytes automated count (number/volume) 0. 4 10*3 0.0-1.0 Automated eosinophil count 0.1 10*3/uL 0 .0-0.3 Automated blood basophil count (count/volume) 0.1 10*3/uL 0.0-0.1 Comprehensive metabolic panel - 02/29/20 09:00 Serum or plasma sodium measurement (moles/volume) 142 mmol/L 135-145 Serum or plasma potassium measurement (moles/volume) 3.9 mmol/L 3.6-5.0 Serum or plasma chloride measurement (moles/volume) 102 mmol/L 98-107 Carbon dioxide 25 mmol/L 21-32 Serum or plasma anion gap determination (moles/volume) 15 mmol/L 5-14 Serum or plasma urea nitrogen measurement (mass/volume ) 22 mg/dL 7-18 Serum or plasma creatinine measurement (mass/volume) 0.72 mg/dL 0.60-1.30 Serum or plasma urea nitrogen/creatinine mass ratio 31 NRG Serum or plasma creatinine measurement w ith calculation of estimated glomerular filtration rate > NRG Serum or plasma glucose measurement (mass/volume) 160 mg/dL 70-105 Serum or plasma calcium measurement (mass/volume) 9.3 mg/dL 8.5-10.1 Serum or plasma total bilirubin measurement (mass/volu me) 0.2 mg/dL 0.1-1.0 Serum or plasma alkaline phosphatase chandler surement (enzymatic activity/volume) 70 U/L 40-136 Serum or plasma aspartate aminotransfera se measurement (enzymatic activity/volume) 13 U/L 5-34 Serum or plasma alanine aminotransferase measurement (enzymatic activity/volume) 14 U/L 0-55 Serum or plasma protein measurement (mass/volume) 7.4 g/dL 6.4-8.2 Serum or plasma albumin measurement (mass/volume) 4.7 g/dL 3.2-4.5 Lipase - 02/29/20 09:00 Lipase 32 U/L 8-78 Complete urinalysis with reflex to cultu re - 02/29/20 09:43 Urine color determination YELLOW NRG Urine clarity determination CLEAR NR G Urine pH measurement by test strip 5.0 5-9 Specific gravity of urine by test strip > 1.016-1.022 Urine protein assay by test strip, semi-quantitative TRACE NEGATIVE Urine glucose detection by automated test strip NE GATIVE NEGATIVE Erythrocytes detection in urine sediment by light micr oscopy 3+ NEGATIVE Urine ketones detection by automated test strip NE GATIVE NEGATIVE Urine nitrite detection by test strip NEGATIVE NEGATIVE Urine total bilirubin detection by test strip NEGA TIVE NEGATIVE Urine urobilinogen measurement by automated test strip (mass/volume) 0.2 mg/dL < = 1.0 Urine leukocyte esterase detection by dipstick NEG ATIVE NEGATIVE Automated urine sediment erythrocyte cou nt by microscopy (number/high power field) [HPF] NRG Automated urine sediment leukocyte count by microscopy (number/high power field) NONE NRG Bacteria detection in urine sediment by light microsco py TRACE NRG Squamous epithelial cells detection in u rine sediment by light microscopy 2-5 NRG Crystals detection in urine sediment by light microsco py NONE NRG Casts detection in urine sediment by light microscopy NONE NRG Mucus detection in urine sediment by light microscopy MODERATE NRG Complete urinalysis with reflex to culture NO NRG Encounters ACCT No. Visit Date/Time Discharge Status Pt. Type Provider Facility Loc./Unit Complaint [id number] 08/17/2014 10:50:00 08/17/2014 23:59: 59 CLS Outpatient [id number] 11/30/2019 18:00:00 11/30/2019 23:59:5 9 CLS Outpatient MARIA DE JESUS MAGUIRE [facility] [id number] 12/29/2019 09:40:00 Document Registration [id number] 06/25/2019 08:20:00 Document Registration [id number] 11/21/2018 16:00:00 Document Registration [id number] 02/29/2020 08:41:00 020 10:50:00 DIS Outpatient MIRNA TEMPLE, LIANNA Houser [facility] ER FS RT SIDE PAIN;VOMITING [id number] 12/12/2019 13:44:00 020 23:59:59 [facility] Emergency ANNEL TEMPLE, MANUEL Ta [facility] ER FS SOB [id number] 03/04/2020 07:07:[address] Outpatient BABITA TAVAREZ MD [facility] SDC RIGHT URETERAL STONE [id number] 03/03/2020 05:37:[address] Outpatient BABITA TAVAREZ MD [facility] PREOP RIGHT URETERAL STONE [id number] 03/02/2020 13:44:[address] Outpatient BABITA TAVAREZ MD [facility] LAB BILAT RENAL STONES
[2020-03-04] MEDS ORDERED: SUGAMMADEX 500 MG/5 ML VIAL (BRIDION) IV ONE (10:43)
[2020-03-04] MEDS ORDERED: fentaNYL INJECTION 100 MCG/2 ML AMP IVP ONE (11:00)
[2020-03-04] MEDS ORDERED: ONDANSETRON 4 MG/2 ML (SDV) Z0FRAN IVP PRN (11:00)
--- NOTE | 2020-03-04 11:00 | Discharge Inst-Urology ---
Discharge Inst-Urology Reconcile Patient Problems Problems Reviewed?: Yes Final Diagnosis RT URETERAL STONE Patient Instructions/Follow Up Plan/Assessment/Instructions Please make appointment to been seen in office in 4 weeks. In 48 hours, if no bleeding, may resume ASA Increase oral fluids for 48 hours and then as needed. Diet and Activity as tolerated. If questions or concerns contact your physician Or seek help at emergency department. BABITA TAVAREZ MD Mar 04, 2020 11:00
[2020-03-04] MEDS ORDERED: NITR-65 PO (11:03)
[2020-03-04] MEDS ORDERED: PHEN-640 PO (11:03)
--- NOTE | 2020-03-04 12:45 | Anesthesia-General Post-Op ---
General Patient Condition Mental Status/LOC: Same as Preop Cardiovascular: Satisfactory Nausea/Vomiting: Absent Respiratory: Satisfactory Pain: Controlled Complications: Absent Post Op Complications Complications None Follow Up Care/Instructions Patient Instructions None needed. Anesthesia/Patient Condition Patient Condition Patient is doing well, no complaints, stable vital signs, no apparent adverse anesthesia problems. No complications reported per nursing. DEVONTE RIVERA CRNA Mar 04, 2020 12:45
--- NOTE | 2020-03-04 14:39 | OPERATIVE REPORT ---
DATE OF SERVICE: 03/04/2020 PREOPERATIVE DIAGNOSIS: Right distal ureteral stone. POSTOPERATIVE DIAGNOSES: 1. Right distal ureteral stone. 2. Vaginal prolapse. OPERATION PERFORMED: Right ureteroscopy with stone lithotripsy. SURGEON: Hola Tavarez MD ANESTHESIA: General. COMPLICATIONS: None. DESCRIPTION OF PROCEDURE: Under satisfactory general anesthesia, the patient in lithotomy position, genitalia were prepped and draped in the usual sterile fashion. Cystoscope was introduced in the bladder. The stone could be seen through the orifice of the right ureter inside the intramural portion. I removed cystoscope. It was noted that the patient had 2-3+ cystorectocele. I went ahead with 6.9 Georgian semi-rigid ureteroscope. I was able to visualize the stone that was a good size embedded in the wall of the intramural portion of the right ureter. I went ahead and was able to fragment it with the lithoclast, disimpacted it, changed the fragments, broke up all fragments into very small passable pieces, went up and down, there was no harm to the ureter. I removed the ureteroscope. Some of the fragments fell into the bladder, inserted the cystoscope to empty the bladder. The patient tolerated the procedure and anesthesia well and was sent to recovery room in stable condition. Job ID: [id number] DocumentID: [id number] Dictated Date: 03/04/2020 11:02:54 Supervisor Grinding Date: 03/04/2020 14:38:58 Dictated By: HOLA TAVAREZ MD
== END 2020-03-04 12:15 | disposition home or self-care (01) ==
LOC: SDC 07:07
PROVIDERS: ATTEND Urology
DX: N20.1 Calculus of ureter (principal); N81.10 Cystocele, unspecified; N81.6 Rectocele; I10 Essential (primary) hypertension; J45.909 Unspecified asthma, uncomplicated; R73.03 Prediabetes; E66.9 Obesity, unspecified; F32.9 Major depressive disorder, single episode, unspecified; F41.9 Anxiety disorder, unspecified; Z79.899 Other long term (current) drug therapy; Z88.5 Allergy status to narcotic agent; Z88.8 Allergy status to other drugs, medicaments and biological substances; Z68.35 Body mass index [BMI] 35.0-35.9, adult; Z87.891 Personal history of nicotine dependence; Z90.710 Acquired absence of both cervix and uterus; Z83.3 Family history of diabetes mellitus; Z80.1 Family history of malignant neoplasm of trachea, bronchus and lung
CPT/HCPCS: 76000; 87081; 87635

== ENCOUNTER → 2020-04-01 | Outpatient (CLI) | payer BC ==
[~2020-04-01] MED LIST changes: +ASPI-586 PO; +NITR-65 PO; +PHEN-640 PO
== END ==
LOC: LAB 15:23
PROVIDERS: ATTEND Urology
DX: N20.9 Urinary calculus, unspecified (principal)

== ENCOUNTER → 2020-09-27 | Outpatient (CLI) | payer BC ==
[~2020-09-27] MED LIST changes: +ACHD5005 PO; -HYDR-83 PO; -MONT10TA26; +MONT10TA97
--- NOTE | 2020-09-27 12:32 | Diagnostic Imaging Report ---
PROCEDURE: CT urinary tract, rule out kidney stone. TECHNIQUE: Multiple contiguous axial images were obtained through the abdomen and pelvis without the use of intravenous contrast. Auto Exposure Controls were utilized during the CT exam to meet ALARA standards for radiation dose reduction. INDICATION: Right flank pain. COMPARISON: Prior CT from 02/29/2020. FINDINGS: The lung bases are clear. The calcified mass in the right breast is again noted. No discrete liver mass is identified. The gallbladder is surgically absent. There is no biliary ductal dilatation. The pancreas and spleen are unremarkable. The mixed density right adrenal mass measures 2.5 x 2.0 cm compared with 2.6 x 1.9 cm. The left adrenal gland is unremarkable. Nonobstructing stones in both kidneys are again noted, similar to the prior exam. No definite ureteral calculus or evidence of hydronephrosis is identified. The aorta is calcified but non-aneurysmal. There is a small fat-containing umbilical hernia. The small and large bowel loops are of normal caliber. The appendix is unremarkable. There is no free fluid or fluid collection. The uterus appears to be surgically absent. The bony structures are nonacute. IMPRESSION: 1. Bilateral nonobstructing nephrolithiasis. No definite ureteral calculus or hydronephrosis is identified. 2. Small fat-containing umbilical hernia. Dictated by: Dictated on workstation # [id number]
--- NOTE | 2020-09-27 13:25 | Diagnostic Imaging Report ---
EXAMINATION: Abdomen 1 view HISTORY: KIDNEY STONE COMPARISON: CT abdomen/pelvis 09/19/2020 FINDINGS: There is moderate amount of gas and stool throughout the colon. Nonobstructive bowel gas pattern. No radiopaque foreign body. The lung bases are clear. The osseous structures are intact. Right upper quadrant cholecystectomy clips are present. Bilateral renal calculi seen on same-day CT of the abdomen and pelvis are not appreciated on this radiograph. IMPRESSION: Moderate stool burden without other acute abnormality in the abdomen. Bilateral renal calculi are not seen on this radiograph and are better appreciated on the same day CTA of the abdomen and pelvis. Dictated by: Dictated on workstation # [id number]
== END ==
LOC: RAD FS 11:55
PROVIDERS: ATTEND Urology
DX: N20.0 Calculus of kidney (principal); K42.9 Umbilical hernia without obstruction or gangrene; Z90.49 Acquired absence of other specified parts of digestive tract
CPT/HCPCS: 74018; 74176

== ENCOUNTER 2022-09-12 10:28 | Emergency (ER) | payer MEDICARE, OTHER ==
[~2022-09-12 10:28] MED LIST changes: -ESTR2TAB; +ESTR2TAB3; -LISI-552; +LISI20TA26; +MONT-40; -MONT10TA97; +SERT-414; -SERT100T8
--- NOTE | 2022-09-12 10:39 | ED GU-Female ---
General Chief Complaint: - Reproductive Stated Complaint: VOMITING; RT EPIGASTRIC/ABD/RT FLANK History of Present Illness Date Seen by Provider: Sep 12, 2022 Time Seen by Provider: 10:34 Initial Comments 66-year-old female presents with right flank pain and right upper quadrant pain and pain that goes down to her groin. She got some vomiting. She reports that started around this morning. That she had a little bit of difficulty urinating. He has a history of kidney stones and this is similar to her kidney stone in the past. She denies any fever, chills, nausea vomiting or other recent illnesses. Allergies and Home Medications Allergies Coded Allergies: codeine (Unverified Adverse Reaction, Unknown, 12/12/19) meperidine (Unverified Adverse Reaction, Unknown, 12/12/19) Patient Home Medication List Home Medication List Reviewed: Yes Albuterol Sulfate (Albuterol Sulfate) 2.5 Mg/3 Ml Vial.neb, (Reported) Entered as Reported by: STEFANI ALMONTE on 12/12/19 1404 Estradiol (Estradiol Tablet) 2 Mg Tablet, (Reported) Entered as Reported by: STEFANI ALMONTE on 12/12/19 1404 Fluticasone/Salmeterol (Advair 250-50 Diskus) 1 Each Blst.w.dev, (Reported) Entered as Reported by: STEFANI ALMONTE on 12/12/19 1404 Hydrocodone/Acetaminophen (Hydrocodone-Acetamin 5-325 mg) 1 Each Tablet, 1 EACH PO Q6H PRN for PAIN-SEVERE (8-10) Prescribed by: LIANNA BRADLEY on 02/29/20 1035 Ipratropium/Albuterol Sulfate (Iprat-Albut 0.5-3(2.5) mg/3 ml) 3 Ml Ampul.neb, 3 ML IH Q4H PRN for SHORTNESS OF BREATH Prescribed by: MANUEL UP on 12/12/19 1532 Lisinopril (Lisinopril) 20 Mg Tablet, (Reported) Entered as Reported by: STEFANI ALMONTE on 12/12/19 1404 Montelukast Sodium (Montelukast Sodium) 10 Mg Tablet, (Reported) Entered as Reported by: STEFANI ALMONTE on 12/12/19 1404 Nitrofurantoin Monohyd/M-Cryst (Macrobid 100 mg Capsule) 100 Mg Capsule, 1 TAB PO BID Prescribed by: SUSAN SHAW on 03/04/20 1103 Ondansetron (Ondansetron Odt) 4 Mg Tab.rapdis, 4 MG PO Q6H PRN for NAUSEA/VOMITING Prescribed by: LIANNA BRADLEY on 02/29/20 1034 Ondansetron (Ondansetron Odt) 4 Mg Tab.rapdis, 4 MG PO Q6H PRN for NAUSEA/VOMITING Prescribed by: COLETTE SAWANT on 09/12/22 1141 Phenazopyridine HCl (Pyridium) 200 Mg Tablet, 1 TAB PO TID Prescribed by: SUSAN SHAW on 03/04/20 1103 Prednisone (Prednisone) 10 Mg Tab, (Reported) Entered as Reported by: STEFANI ALMONTE on 12/12/19 1404 Prednisone (Prednisone) 20 Mg Tab, (Reported) Entered as Reported by: STEFANI ALMONTE on 12/12/19 1404 Sertraline HCl (Sertraline HCl) 100 Mg Tablet, (Reported) Entered as Reported by: STEFANI ALMONTE on 12/12/19 1404 Simvastatin (Simvastatin) 20 Mg Tablet, (Reported) Entered as Reported by: STEFANI ALMONTE on 12/12/19 1404 Tamsulosin HCl (Flomax) 0.4 Mg Cap, 0.4 MG PO DAILY Prescribed by: LIANNA BRADLEY on 02/29/20 1034 Tramadol HCl (Tramadol HCl) 50 Mg Tablet, 50 MG PO Q8H PRN for PAIN Prescribed by: COLETTE SAWANT on 09/12/22 1142 Review of Systems Review of Systems Constitutional: see HPI; No chills, No fever EENTM: no symptoms reported Respiratory: no symptoms reported Cardiovascular: no symptoms reported Gastrointestinal: abdominal pain; No diarrhea; nausea, vomiting Genitourinary: see HPI, flank pain Musculoskeletal: see HPI, back pain Psychiatric/Neurological: No Symptoms Reported Endocrine: No Symptoms Reported Hematologic/Lymphatic: No Symptoms Reported Past Sgwhczd-Vhaqbx-Ntfgdb Hx Seasonal Allergies Seasonal Allergies: Yes Past Medical History Surgeries: Yes (ORIF patella 02/11/13, D&C, [place] teeth extraction) Gallbladder, Hysterectomy, Orthopedic Respiratory: Yes Asthma Cardiac: Yes Hypertension Neurological: No Sexually Transmitted Disease: No HIV/AIDS: No Genitourinary: Yes Kidney Stones Gastrointestinal: No Musculoskeletal: Yes (Patella fx, Right Patellofemerol arthritis) Arthritis, Fractures Endocrine: Yes (Prediabetes) HEENT: No Loss of Vision: Denies Hearing Impairment: Denies Cancer: No Psychosocial: Yes Anxiety Integumentary: No Blood Disorders: No Adverse Reaction/Blood Tranf: No (N/A) Physical Exam Vital Signs Vital Signs - First Documented 09/12/22 10:32 Temp 36.1 Pulse 80 Resp 16 B/P (MAP) 159/72 (101) Pulse Ox 98 O2 Delivery Room Air Capillary Refill : Height, Weight, BMI Height: '" Weight: lbs. oz. kg; 35.03 BMI Method: General Appearance: WD/WN, no apparent distress Neck: full range of motion, supple Cardiovascular: normal peripheral pulses, regular rate, rhythm, no edema Respiratory: lungs clear, normal breath sounds Gastrointestinal: soft, tenderness (Right sided) Back: CVA tenderness (R) Extremities: normal range of motion Neurologic/Psychiatric: alert, normal mood/affect, oriented x 3 Skin: normal color, warm/dry Progress/Results/Core Measures Suspected Sepsis SIRS Temperature: Pulse: Respiratory Rate: Laboratory Tests 09/12/22 10:45: White Blood Count 7.9 Blood Pressure / Mean: Laboratory Tests 09/12/22 10:45: Creatinine 0.65, Platelet Count 290, Total Bilirubin 0.2 Results/Orders Lab Results Laboratory Tests Test 09/12/22 10:45 09/12/22 11:26 Range/Units White Blood Count 7.9 4.3-11.0 10^3/uL Red Blood Count 4.59 3.80-5.11 10^6/uL Hemoglobin 13.3 11.5-16.0 g/dL Hematocrit 40 35-52 % Mean Corpuscular Volume 86 80-99 fL Mean Corpuscular Hemoglobin 29 25-34 pg Mean Corpuscular Hemoglobin Concent 34 32-36 g/dL Red Cell Distribution Width 12.7 10.0-14.5 % Platelet Count 290 130-400 10^3/uL Mean Platelet Volume 8.9 L 9.0-12.2 fL Percent Immature Platelet Fraction 1.0 0.0-7.6 % Sodium Level 138 135-145 MMOL/L Potassium Level 3.7 3.6-5.0 MMOL/L Chloride Level 102 98-107 MMOL/L Carbon Dioxide Level 27 21-32 MMOL/L Anion Gap 9 5-14 MMOL/L Blood Urea Nitrogen 19 H 7-18 MG/DL Creatinine 0.65 0.60-1.30 MG/DL Estimat Glomerular Filtration Rate 98 BUN/Creatinine Ratio 29 Glucose Level 130 H 70-105 MG/DL Calcium Level 9.3 8.5-10.1 MG/DL Corrected Calcium 8.9 8.5-10.1 MG/DL Total Bilirubin 0.2 0.1-1.0 MG/DL Aspartate Amino Transf (AST/SGOT) 12 5-34 U/L Alanine Aminotransferase (ALT/SGPT) 13 0-55 U/L Alkaline Phosphatase 73 40-136 U/L Total Protein 7.3 6.4-8.2 GM/DL Albumin 4.5 3.2-4.5 GM/DL Lipase 30 8-78 U/L Urine Color YELLOW Urine Clarity TURBID Urine pH 5.5 5-9 Urine Specific Olivia >=1.030 1.016-1.022 Urine Protein 1+ H NEGATIVE Urine Glucose (UA) NEGATIVE NEGATIVE Urine Ketones NEGATIVE NEGATIVE Urine Nitrite NEGATIVE NEGATIVE Urine Bilirubin NEGATIVE NEGATIVE Urine Urobilinogen 0.2 < = 1.0 MG/DL Urine Leukocyte Esterase NEGATIVE NEGATIVE Urine RBC (Auto) 3+ H NEGATIVE Urine RBC >100 H /HPF Urine WBC 2-5 /HPF Urine Squamous Epithelial Cells 2-5 /HPF Urine Crystals NONE /LPF Urine Bacteria FEW H /HPF Urine Casts NONE /LPF Urine Mucus LARGE H /LPF Urine Culture Indicated NO My Orders Orders - SAWANT,COLETTE L DO Cbc No Diff (09/12/22 10:42) Comprehensive Metabolic Panel (09/12/22 10:42) Lipase (09/12/22 10:42) Ua Culture If Indicated (09/12/22 10:42) Ct Abdomen/Pelvis Wo (09/12/22 10:42) Ketorolac Injection (Toradol Injection) (09/12/22 10:42) Ondansetron Injection (Zofran Injectio (09/12/22 10:45) Ns Iv 1000 Ml (Sodium Chloride 0.9%) (09/12/22 10:42) Medications Given in ED Current Medications Medications Dose Ordered Sig/Heather Route Start Time Stop Time Status Last Admin Dose Admin Ondansetron HCl 4 mg ONCE ONCE IVP 09/12/22 10:45 09/12/22 10:46 DC 09/12/22 10:50 4 MG Vital Signs/I&O 09/12/22 09/12/22 10:32 12:06 Temp 36.1 36.1 Pulse 80 75 Resp 16 16 B/P (MAP) 159/72 (101) 155/68 Pulse Ox 98 98 O2 Delivery Room Air Room Air Capillary Refill : Progress Note : Progress Note Patient with 6 mm kidney stone. She already has an established relationship with Dr. Artis. I recommend she give his office a call to arrange for further outpatient management. I will provide her with some nausea and pain medication. She is stable and discharged home Diagnostic Imaging Diagonstic Imaging: CT Plain Films/CT/US/NM/MRI: abdomen, pelvis Comments ADMIT DATE: 09/12/22/ER FS Draft Date of Exam:09/12/22 CT ABDOMEN/PELVIS WO CT ABDOMEN/PELVIS WO TECHNIQUE: Unenhanced CT imaging of the abdomen and pelvis was performed. 2-D reformats are created and submitted for interpretation. Automatic exposure controls were utilized to optimize patient dose. INDICATION: Abdominal pain COMPARISON: 09/07/2020 FINDINGS: Lower chest: The lung bases are clear. No pericardial or pleural effusion. Peritoneum: No free intraperitoneal air or fluid. Liver and biliary system: Unenhanced liver is normal. Cholecystectomy. No biliary duct dilation. Spleen and Pancreas: Numerous punctate calcified splenic granulomas are unchanged. Unenhanced pancreas is grossly normal. 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 Left adrenal gland is normal. tract: Moderate right hydronephrosis due to a 6 mm stone in the proximal one third of the right ureter. No obstructive uropathy on the left. There are bilateral nonobstructing renal stones also present. Urinary bladder is decompressed. Hysterectomy. No adnexal mass. GI tract: Stomach is partially filled with fluid and there is no wall thickening. No bowel obstruction. No pericolonic inflammatory changes. Normal appendix. Vasculature and Lymph nodes: Normal caliber aorta. No abdominal or pelvic lymphadenopathy. Musculoskeletal: No concerning osseous lesion. IMPRESSION: 1. Moderate right hydronephrosis due to an obstructing 6 mm stone in the proximal one third of the right ureter. 2. There are additional bilateral nonobstructing renal stones. Departure Impression Primary Impression: Right ureteral stone Disposition: 01 HOME, SELF-CARE Condition: Stable Departure-Patient Inst. Referrals: MARIA DE JESUS MAGUIRE APRN (PCP) Primary Care Physician [facility] (Family) Primary Care Physician Patient Instructions: Kidney Stone, Adult ED Add. Discharge Instructions: Please call Dr. Dash's office upon discharge All discharge instructions reviewed with patient and/or family. Voiced understanding. Scripts Ondansetron (Ondansetron Odt) 4 Mg Tab.rapdis 4 MG PO Q6H PRN for NAUSEA/VOMITING, #20 TAB 0 Refills Prov: COLETTE SAWANT DO 09/12/22 Tramadol HCl (Tramadol HCl) 50 Mg Tablet 50 MG PO Q8H PRN for PAIN for 3 Days, #10 TAB 0 Refills Prov: COLETTE SAWANT DO 09/12/22 COLETTE SAWANT DO Sep 12, 2022 10:39
[2022-09-12] MEDS ORDERED: KETOROLAC 30 MG/ML VIAL IVP STA (10:42)
[2022-09-12] MEDS ORDERED: NS IV 1000 ML 1,000 ML IV STA (10:42)
[2022-09-12] MEDS ORDERED: ONDANSETRON 4 MG/2 ML (SDV) Z0FRAN IVP ONE (10:45)
[2022-09-12 10:54] LABS: HEMOGLOBIN 13.3 g/dL (11.5-16.0); MEAN PLATELET VOLUME 8.9 fL (9.0-12.2); WHITE BLOOD COUNT 7.9 10^3/uL (4.3-11.0)
[2022-09-12 11:13] LABS: ALBUMIN 4.5 GM/DL (3.2-4.5); BILIRUBIN,TOTAL 0.2 MG/DL (0.1-1.0); CALCIUM 9.3 MG/DL (8.5-10.1); CREATININE SERUM 0.65 MG/DL (0.60-1.30); POTASSIUM 3.7 MMOL/L (3.6-5.0); TOTAL PROTEIN 7.3 GM/DL (6.4-8.2)
--- NOTE | 2022-09-12 11:16 | Diagnostic Imaging Report ---
CT ABDOMEN/PELVIS WO TECHNIQUE: Unenhanced CT imaging of the abdomen and pelvis was performed. 2-D reformats are created and submitted for interpretation. Automatic exposure controls were utilized to optimize patient dose. INDICATION: Abdominal pain COMPARISON: 09/07/2020 FINDINGS: Lower chest: The lung bases are clear. No pericardial or pleural effusion. Peritoneum: No free intraperitoneal air or fluid. Liver and biliary system: Unenhanced liver is normal. Cholecystectomy. No biliary duct dilation. Spleen and Pancreas: Numerous punctate calcified splenic granulomas are unchanged. Unenhanced pancreas is grossly normal. 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 Left adrenal gland is normal. tract: Moderate right hydronephrosis due to a 6 mm stone in the proximal one third of the right ureter. No obstructive uropathy on the left. There are bilateral nonobstructing renal stones also present. Urinary bladder is decompressed. Hysterectomy. No adnexal mass. GI tract: Stomach is partially filled with fluid and there is no wall thickening. No bowel obstruction. No pericolonic inflammatory changes. Normal appendix. Vasculature and Lymph nodes: Normal caliber aorta. No abdominal or pelvic lymphadenopathy. Musculoskeletal: No concerning osseous lesion. IMPRESSION: 1. Moderate right hydronephrosis due to an obstructing 6 mm stone in the proximal one third of the right ureter. 2. There are additional bilateral nonobstructing renal stones. Dictated by: Dictated on workstation # [id number]
[2022-09-12 11:32] LABS: BILIRUBIN,URINE NEGATIVE (NEGATIVE); CLARITY,URINE TURBID; COLOR,URINE YELLOW; GLUCOSE, URINE (UA) NEGATIVE (NEGATIVE); KETONES,URINE NEGATIVE (NEGATIVE); LEUKOCYTE ESTERASE ,URINE NEGATIVE (NEGATIVE); NITRITE,URINE NEGATIVE (NEGATIVE); PH,URINE 5.5 (5-9); PROTEIN,URINE 1+ (NEGATIVE)
[2022-09-12] MEDS ORDERED: ONDA4TAB11 PO (11:41)
[2022-09-12] MEDS ORDERED: TRM50T PO (11:41)
[2022-09-12 11:44] LABS: BACTERIA,URINE FEW /HPF; RBC,URINE >100 /HPF
[2022-09-12 12:06] VITALS: BP 155/68
== END 2022-09-12 12:06 | disposition home or self-care (01) ==
LOC: EDUNIT# 10:28 → ER FS 10:31
DX: N13.2 Hydronephrosis with renal and ureteral calculous obstruction (principal); Z88.5 Allergy status to narcotic agent
CPT/HCPCS: 36415; 74176; 80053; 81000; 83690; 85027

== ENCOUNTER → 2023-04-30 | Outpatient (CLI) | payer MEDICARE, OTHER ==
[~2023-04-30] MED LIST changes: +TRM50T PO
--- NOTE | 2023-04-30 11:10 | Diagnostic Imaging Report ---
EXAMINATION: MRI of the abdomen without contrast. MRCP TECHNIQUE: Multiplanar, multisequence MR images of the abdomen were obtained without intravenous contrast including 3D MIP MRCP images. HISTORY: Right upper quadrant pain COMPARISON: CT abdomen and pelvis of 09/12/2022 FINDINGS: Liver: No suspicious liver lesions. No steatosis. No surface nodularity. Ducts: No biliary ductal dilation. No filling defects indicate choledocholithiasis. Gallbladder: Cholecystectomy. Pancreas: Normal. Spleen: Normal. Adrenals: Stable 2.1 x 1.5 cm right adrenal adenoma. Left adrenal gland is normal. Kidneys: Moderate left-sided hydronephrosis has developed with blunting of the calyces and dilation of the intra and extrarenal pelves. The visualized portion left ureter also dilated. No cortical thinning in the left kidney.No focal renal mass. Bowel: Normal. Other: No lymphadenopathy. Visualized portions of the thorax are normal. No suspicious osseus lesions. IMPRESSION: 1. Incidental note is made of moderate left-sided hydronephrosis which is new since prior CT of 09/12/2022. This is suspicious for distal obstructing process of the ureter, potentially a stone. CT of the abdomen and pelvis without IV contrast is advised for further assessment. 2. No biliary obstruction or choledocholithiasis. Dictated by: Dictated on workstation # [id number]
== END ==
LOC: RAD 08:07
PROVIDERS: ATTEND Nurse Practitioner Family
DX: N13.30 Unspecified hydronephrosis (principal); R10.11 Right upper quadrant pain; Z98.890 Other specified postprocedural states
CPT/HCPCS: 74181

== ENCOUNTER → 2023-05-10 | Outpatient (CLI) | payer MEDICARE, OTHER ==
--- NOTE | 2023-05-10 13:58 | Diagnostic Imaging Report ---
PROCEDURE: CT urinary tract, rule out kidney stone. TECHNIQUE: Multiple contiguous axial images were obtained through the abdomen and pelvis without the use of intravenous contrast. Auto Exposure Controls were utilized during the CT exam to meet ALARA standards for radiation dose reduction. INDICATION: Calculus of kidney with calculus of ureter. COMPARISON: 09/12/2022. FINDINGS: Dystrophic calcifications are present in the right breast. Minimal calcification in the right lobe of the liver is likely due to previous granulomatous exposure. Gallbladder is surgically absent without significant biliary ductal dilatation. Pancreas is unremarkable, and there is no evidence of splenic lesion apart from occasional calcified granulomas. Mixed-density nodule in the right adrenal gland is stable. There is moderate left hydronephrosis with dilatation of the proximal left ureter to the level of an approximately 0.6 cm stone in the proximal left ureter. There is minimal punctate nonobstructing calcification in the right kidney without evidence of hydronephrosis or hydroureter on the right. The appendix is unremarkable. There is no evidence of free fluid within the abdomen or pelvis. Unopacified bladder is unremarkable. IMPRESSION: At least partially obstructing 0.6 cm proximal left ureteric stone with moderate left hydronephrosis. Dictated by: Dictated on workstation # [id number]
== END ==
LOC: RAD FS 13:16
DX: N13.2 Hydronephrosis with renal and ureteral calculous obstruction (principal)
CPT/HCPCS: 74176